=== PATIENT | female | born 1965 | race African-American/Black ===

== ENCOUNTER 2017-06-06 06:16 | Day surgery (SDC) | payer BC ==
[2017-06-04 14:33] LABS: Basophils # (auto) 0 uL; Eosinophils # (auto) 0.1 uL; Eosinophils % (auto) 1.8 % (0.0-7.0); Hemoglobin 12.3 g/dL (12.2-16.2); Mean Corpuscular Volume 78.7 fL (80.0-100.0); White Blood Cell 7.6 10^3/uL (4.4-10.8)
[2017-06-04 14:34] LABS: Urine Bilirubin Negative (Negative); Urine Blood Negative /uL (Negative); Urine Color Yellow (Yellow); Urine Glucose Normal (Normal); Urine Ketone TRACE (Negative); Urine Nitrite Negative (Negative); Urine RBC 1 /hpf (0 - 4); Urine Squamous Epithelial Cell FEW /hpf (<5); Urine Urobilinogen Normal (Negative); Urine pH 5.5 (5.0-8.0)
[2017-06-04 14:35] LABS: Basophils % (auto) 0.6 % (0.0-2.0); Hematocrit 38.7 % (36.0-46.0); Lymphocytes # (auto) 2.6 uL; Lymphocytes % (auto) 33.4 % (10.0-50.0); Mean Corpuscular Hgb Conc. 31.8 g/dL (32.0-36.0); Mean Platelet Volume 7.9 fL (6.9-10.8); Monocytes # (auto) 0.5 uL; Neutrophils # (auto) 4.4 uL; Neutrophils % (auto) 57.2 % (37.0-80.0); Nucleated Red Blood Cells % 0.1 %; Platelet Count (auto) 246 10^3/uL (140-450); Red Cell Distribution Width 15.5 % (11.8-14.3)
[2017-06-04 14:47] LABS: BUN/Creatinine Ratio 23.2; Calcium 9.8 mg/dL (8.5-10.1); Potassium 4.1 mmol/L (3.5-5.1)
[2017-06-04 14:49] LABS: Bilirubin, Total 0.3 mg/dL (0.2-1.0); INR 0.97 (0.9-1.15); Partial Thromboplastin Time 25.4 sec (22.64-33.71); Prothrombin Time 10.6 sec (9.37-12.3); Total Protein 8.1 g/dL (6.4-8.2)
[~2017-06-06] VITALS: Ht 167.6 cm; Wt 83.9 kg
[2017-06-06] MEDS ORDERED: ceFAZolin 1GM/50ML 50 ML IV ONE (06:37)
[2017-06-06] MEDS ORDERED: MIDAZOLAM HCL 1MG/1ML-2 ML VIAL ONE (06:53)
[2017-06-06] MEDS ORDERED: SODIUM CHLORIDE LOCK 20 ML ONE (06:53)
[2017-06-06] MEDS ORDERED: ONDANSETRON HCL 4 MG/2 ML VIAL ONE (06:53)
[2017-06-06] MEDS ORDERED: PROPOFOL 10 MG/ML 20 ML IV ONE (06:53)
[2017-06-06] MEDS ORDERED: fentaNYL CITRATE 100 MCG/2 ML VL ONE (06:53)
[2017-06-06] MEDS ORDERED: IOHEXOL 300 MG/ML 100ML BOTTLE IJ ONE (07:14)
[2017-06-06] MEDS ORDERED: HYDROmorphone HCL 2 MG/ML VL IV PRN (08:45)
[2017-06-06] MEDS ORDERED: METOCLOPRAMIDE HCL 5MG/ml INJ 2ml VIAL IV ONE (08:45)
[2017-06-06 09:08] VITALS: BP 109/67
== END 2017-06-06 09:25 | disposition home or self-care (01) ==
LOC: SUR 06:16
PROVIDERS: ATTEND Urology
DX: N20.1 Calculus of ureter (principal); D69.6 Thrombocytopenia, unspecified; E66.01 Morbid (severe) obesity due to excess calories; Z68.29 Body mass index [BMI] 29.0-29.9, adult; F10.99 Alcohol use, unspecified with unspecified alcohol-induced disorder
CPT/HCPCS: 36415; 52356; 74000; 76000; 80053; 81001; 85025; 85610; 85730; C1758; C1769; C2617; J0690; J2250; J2405; J2704; J3010; J7030; Q9967

== ENCOUNTER 2017-06-21 08:21 | Day surgery (SDC) | payer BC ==
[2017-06-20 11:44] LABS: INR 0.95 (0.9-1.15); Partial Thromboplastin Time 25.1 sec (22.64-33.71); Prothrombin Time 10.4 sec (9.37-12.3)
[2017-06-20 11:52] LABS: Basophils # (auto) 0 uL; Hemoglobin 12.3 g/dL (12.2-16.2); Lymphocytes # (auto) 2.2 uL; Lymphocytes % (auto) 32.8 % (10.0-50.0); Mean Corpuscular Hemoglobin 24.7 pg (28.0-32.0); Mean Corpuscular Hgb Conc. 31.7 g/dL (32.0-36.0); Mean Platelet Volume 7.5 fL (6.9-10.8); Monocytes # (auto) 0.5 uL
[2017-06-20 11:53] LABS: Basophils % (auto) 0.6 % (0.0-2.0); Eosinophils # (auto) 0.4 uL; Eosinophils % (auto) 5.6 % (0.0-7.0); Hematocrit 38.8 % (36.0-46.0); Neutrophils # (auto) 3.5 uL; Platelet Count (auto) 290 10^3/uL (140-450); Red Cell Distribution Width 15.6 % (11.8-14.3); White Blood Cell 6.6 10^3/uL (4.4-10.8)
[2017-06-20 11:58] LABS: BUN/Creatinine Ratio 22.1; Calcium 9.8 mg/dL (8.5-10.1); Potassium 4.6 mmol/L (3.5-5.1)
[2017-06-20 12:01] LABS: Bilirubin, Total 0.3 mg/dL (0.2-1.0); Total Protein 8.5 g/dL (6.4-8.2)
[~2017-06-21] VITALS: Ht 167.6 cm; Wt 83.9 kg
[2017-06-21] MEDS ORDERED: fentaNYL CITRATE 100 MCG/2 ML VL ONE (10:49)
[2017-06-21] MEDS ORDERED: PROPOFOL 10 MG/ML 20 ML IV ONE (10:49)
[2017-06-21] MEDS ORDERED: MIDAZOLAM HCL 1MG/1ML-2 ML VIAL ONE (10:49)
[2017-06-21] MEDS ORDERED: ONDANSETRON HCL 4 MG/2 ML VIAL ONE (10:49)
[2017-06-21] MEDS ORDERED: ceFAZolin 1GM/50ML 50 ML IV ONE (11:21)
[2017-06-21 12:30] VITALS: BP 115/60
== END 2017-06-21 12:30 | disposition home or self-care (01) ==
LOC: SUR 08:21
PROVIDERS: ATTEND Urology
DX: T19.8XXA Foreign body in other parts of genitourinary tract, initial encounter (principal); N39.0 Urinary tract infection, site not specified; E66.9 Obesity, unspecified; Z68.29 Body mass index [BMI] 29.0-29.9, adult; D69.6 Thrombocytopenia, unspecified
CPT/HCPCS: 36415; 52310; 80053; 85025; 85610; 85730; J0690; J2250; J2405; J2704; J3010; J7030